=== PATIENT | male | born 1950 | race Hispanic/Latino ===

== ENCOUNTER 2016-11-19 09:19 | Emergency (ER) | payer MEDICARE ==
[2016-11-19] MEDS ORDERED: Pantoprazole 40 MG VIAL ONE (09:39)
[2016-11-19 09:47] LABS: #Basophils 0.1 thou/uL (0.0-0.2); #Lymphocytes 0.4 thou/uL (1.20-3.40); #Monocytes 1.3 thou/uL (0.11-0.59); #Neutrophils 11.9 thou/uL (1.40-6.50); %Basophils 0.6 % (0.0-1.0); %Monocytes 9.5 % (0.0-10.0); %Neutrophils 86.9 % (42.0-75.0); Hemoglobin 15.1 g/dL (14.0-18.0); Mean Corpuscular HGB CONC 32.1 g/dL (32.0-36.0); Mean Corpuscular Hemoglobin 30.7 pg (27.0-31.0); Mean Corpuscular Volume 95.7 fl (80.0-94.0); Platelet Count 291 thou/uL (130-400); RBC Distribution Width 13.9 % (11.5-14.5); Red Blood Cell (RBC) Count 4.93 mill/uL (4.70-6.10); White Blood Cell (WBC) Count 13.7 thou/uL (4.8-10.8)
[2016-11-19] MEDS ORDERED: diphenhydrAMINE HCl 50 MG/ML 1 ML VIAL ONE (09:49)
[2016-11-19] MEDS ORDERED: Ondansetron HCl/PF 4 MG/2 ML Vial ONE (09:49)
[2016-11-19 09:52] LABS: INR-International Normal Ratio 1.1; Prothrombin Time 14.5 SEC (12.0-14.7)
[2016-11-19 10:01] LABS: ALT (SGPT) 36 U/L (8-55); AST (SGOT) 17 U/L (5-34); Albumin 4.5 g/dL (3.4-4.8); Alkaline Phosphatase 64 U/L (40-150); Anion Gap 32 mmol/L (10-20); BUN (Urea Nitrogen) 30 mg/dL (8.4-25.7); Bilirubin, Total 0.7 mg/dL (0.2-1.2); Calc. Creatinine Clearance 0 mL/min (70-130); Calcium 9.3 mg/dL (7.8-10.44); Carbon Dioxide 12 mmol/L (23-31); Chloride 101 mmol/L (98-107); Estimated GFR-MDRD 31; Globulin 2.8 g/dL (2.4-3.5); Potassium 4.2 mmol/L (3.5-5.1); Protein, Total 7.3 g/dL (5.8-8.1); Sodium 141 mmol/L (136-145)
[2016-11-19 10:03] LABS: CKMB 3.5 ng/mL (0-6.6); Troponin I Less than 0.010 ng/mL (< 0.028)
[2016-11-19 10:11] LABS: Glucose 720 mg/dL (80-115)
[2016-11-19] MEDS ORDERED: Insulin Regular 300 UNITS/3 ML VIAL ONE (10:16)
[2016-11-19] MEDS ORDERED: Fentanyl 100 MCG/2 ML VIAL ONE (11:33)
--- NOTE | 2016-11-19 17:39 | RAD ---
PORTABLE CHEST: Date: 11/19/16 An AP portable film was done to evaluate shortness of breath. There were no prior films available fo r comparison. FINDINGS: The depth of inspiration is somewhat shallow, which precludes seeing the lower lobes well. No gross lobar infiltrate or effusion was seen. The heart sizes is normal. There is no edema or congestion. T he trachea is midline. Air beneath the eft hemidiaphragm appears to be in bowel or stomach, as best as I can tell. There may be some degenerative changes in the left AC joint. IMPRESSION: Shallow breath. No definite acute findings. At most, there might be a little bit of basilar atelecta sis on the left. POS: HOME
== END 2016-11-19 12:10 | disposition short-term general hospital (02) ==
LOC: BURERS 09:19
DX: K92.2 Gastrointestinal hemorrhage, unspecified (principal); E11.65 Type 2 diabetes mellitus with hyperglycemia; E78.5 Hyperlipidemia, unspecified; E78.00 Pure hypercholesterolemia, unspecified; I10 Essential (primary) hypertension; Z79.899 Other long term (current) drug therapy
CPT/HCPCS: 36415; 36416; 36430; 71010; 80053; 82553; 83880; 84484; 85025; 85610; 85730; 86850; 86900; 86901; 86922; 93005; 94760; 96365; 96366; 96375; C9113; J1200; J1815; J2405; J3010; P9016